=== PATIENT | male | born 2000 | race African-American/Black ===

== ENCOUNTER 2022-11-13 21:48 | Emergency (ER) | payer OTHER ==
[~2022-11-13] VITALS: Ht 180.3 cm; Wt 73.5 kg
[2022-11-13 22:15] VITALS: BP 122/68
[2022-11-13] MEDS ORDERED: TDAP [DIPH/PERTUSSIS/TET] 0.5 ML VIAL IM ONE (23:00)
--- NOTE | 2022-11-13 23:23 | NUR ---
Patient discharged to home in stable condition. Written and verbal after care instructions given. Patient verbalizes understanding of instruction.
== END 2022-11-13 23:27 | disposition home or self-care (01) ==
LOC: ER 21:51
DX: S01.112A Laceration without foreign body of left eyelid and periocular area, initial encounter (principal); W25.XXXA Contact with sharp glass, initial encounter; Y93.89 Activity, other specified; Y92.89 Other specified places as the place of occurrence of the external cause; Y99.8 Other external cause status
CPT/HCPCS: 99282; 12011; A6403

== ENCOUNTER 2022-11-25 12:01 | Emergency (ER) | payer OTHER ==
[~2022-11-25] VITALS: Ht 180.3 cm; Wt 72.6 kg
[2022-11-25 12:21] VITALS: BP 116/67
--- NOTE | 2022-11-25 12:40 | NUR ---
seen by DR AYALA. REMOVED SUTURES.
== END 2022-11-25 12:43 | disposition home or self-care (01) ==
LOC: ER 12:09
DX: Z48.02 Encounter for removal of sutures (principal)